=== PATIENT | male | born 1990 | race Caucasian/White ===

== ENCOUNTER 2021-01-26 06:01 | Emergency (ER) | payer BC ==
[~2021-01-26] VITALS: Ht 177.8 cm; Wt 93.0 kg
[2021-01-26] MEDS ORDERED: IBUP800 PO (06:33)
== END 2021-01-26 07:01 | disposition home or self-care (01) ==
LOC: ER 06:01
DX: S96.911A Strain of unspecified muscle and tendon at ankle and foot level, right foot, initial encounter (principal); X50.1XXA Overexertion from prolonged static or awkward postures, initial encounter
CPT/HCPCS: 73610; 73630; 99283-25; A9270